=== PATIENT | female | born 1990 | race Caucasian/White ===

== ENCOUNTER 2016-08-29 22:32 | Inpatient (IN) | payer OTHER ==
[2016-08-29] MEDS ORDERED: Sodium Chloride 0.9% 10 ML Syringe FLUSH PRN (23:20)
[2016-08-29] MEDS ORDERED: Lactated Ringers 1,000 ML IV SCH (23:30)
--- NOTE | 2016-08-29 23:42 | PCM.LDHP ---
L&D History of Present Illness - General Date of Service: 08/29/16 Admit Problem/Dx: Admission Diagnosis/Problem Admission Diagnosis/Problem Source of Information: Patient History Limitations: Reports: No Limitations - History of Present Illness Improves with: Reports: None Worsens with: Reports: None Associated Symptoms: Reports: N - Related Data Allergies/Adverse Reactions: Allergies Allergy/AdvReac Type Severity Reaction Status Date / Time No Known Allergies Allergy Verified 06/13/14 06:02 Home Medications: Home Meds PNV95/Ferrous Fumarate/FA [ Multivitamins] 1 each PO DAILY 06/13/14 [ History] 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: - Past Surgical History HEENT Surgical History: Reports: Adenoidectomy, Tonsillectomy Social & Family History - Family History Cardiac: Reports: Hypertension - Tobacco Use Smoking Status *Q: Never Smoker Second Hand Smoke Exposure: No - Caffeine Use Caffeine Use: Reports: Coffee, Soda - Alcohol Use Days Per Week of Alcohol Use: 0 - Recreational Drug Use Recreational Drug Use: No H&P Review of Systems - Review of Systems: Review Of Systems: See Below General: Reports: No Symptoms HEENT: Reports: No Symptoms Pulmonary: Reports: No Symptoms Cardiovascular: Reports: No Symptoms Gastrointestinal: Reports: No Symptoms Genitourinary: Reports: Other (contractions) Musculoskeletal: Reports: No Symptoms Skin: Reports: No Symptoms Psychiatric: Reports: No Symptoms Neurological: Reports: No Symptoms Hematologic/Lymphatic: Reports: No Symptoms Immunologic: Reports: No Symptoms L&D Exam - Exam Exam: See Below - Vital Signs Weight: 78.471 kg - OB Specific Contraction Intensity: Mild to Moderate Movement: Active Heart Tones: Present - Cortes Score Cortes Score Cervix Position: Midposition Cortes Score Consistency: Medium Cortes Score Effacement: >80% Cortes Score Dilation: > 5 cm Cortes Score Infant's Station: -1 ,0 Cortes Score Total: 10 - Exam General: Alert HEENT: Conjunctiva Clear Neck: Supple Lungs: Clear to Auscultation Cardiovascular: Regular Rate Genitourinary: Normal external exam Back Exam: Normal Inspection Extremities: Normal Inspection Skin: Warm, Dry, Intact Psychiatric: Alert, Normal Affect, Normal Mood Problem List Initiated/Reviewed/Updated: Yes Orders Last 24hrs: Active Orders 24 hr Category Date Time Status Activity as Tolerated [RC] PFP Care 08/29/16 23:21 Active Communication Order [RC] ASDIRECTED Care 08/29/16 23:21 Active Heart Tones [RC] ASDIRECTED Care 08/29/16 23:21 Active Notify Provider [RC] PFP Care 08/29/16 23:21 Active Notify Provider [RC] PRN Care 08/29/16 23:21 Active Peripheral IV Care [RC] . DIRECTED Care 08/29/16 23:21 Active Vital Signs [RC] PER UNIT ROUTINE Care 08/29/16 23:21 Active Lactated Ringers [Ringers, Lactated] 1,000 ml Med 08/29/16 23:30 Active IV ASDIRECTED Sodium Chloride 0.9% [Saline Flush] Med 08/29/16 23:20 Active 10 ml FLUSH ASDIRECTED PRN Electronic Heart Tones Ext w TOCO [WOMSER] Oth 08/29/16 23:21 Ordered Routine Electronic Heart Tones Internal [WOMSER] Per Unit Oth 08/29/16 23:21 Ordered Routine Peripheral IV Insertion Adult [OM.PC] Routine Oth 08/29/16 23:21 Ordered Resuscitation Status Routine Resus Stat 08/29/16 23:20 Ordered Medication Orders Lactated Ringer's (Ringers, Lactated) 1,000 mls @ 100 mls/hr IV ASDIRECTED ANNIE Sodium Chloride (Saline Flush) 10 ml FLUSH ASDIRECTED PRN PRN Reason: Keep Vein Open Assessment/Plan Comment:: 26 year old here in labor. Admit Pain control per patient request (declines now) Anticipate .
[2016-08-29] MEDS ORDERED: Oxytocin/Lactated Ringers 10 UNIT/1,000 ML BAG IV SCH (23:45)
[2016-08-30] MEDS ORDERED: Docusate Sodium 100 MG Cap PO PRN (03:04)
[2016-08-30] MEDS ORDERED: Lanolin 100% Cream 7 GM Tube TOP PRN (03:04)
[2016-08-30] MEDS ORDERED: Witch Hazel Medicated Pads 100/Jar TOP PRN (03:04)
[2016-08-30] MEDS ORDERED: Benzocaine/Menthol 20%-0.5% Spray 56 GM Canister TOP PRN (03:04)
[2016-08-30] MEDS: Ibuprofen 600 MG Tab PO PRN ×2 (03:30→11:47)
[2016-08-30] MEDS: Acetaminophen 325 MG Tab PO PRN ×2 (08:21→13:54)
[2016-08-30] MEDS: Acetaminophen/HYDROcodone 325-10 MG Tab PO PRN (17:09)
[2016-08-31] MEDS: Acetaminophen/HYDROcodone 325-10 MG Tab PO PRN (04:37)
[2016-08-31 11:11] VITALS: BP 105/77
--- NOTE | 2016-09-05 05:50 | PCM.DCSUM1 ---
Discharge Summary - Hospital Course Brief History: Admitted in active labor. Unremarkable . Discharged in good condition PPD1 - Discharge Data Discharge Date: 08/30/16 Discharge Disposition: Home, Self-Care 01 Condition: Stable - Patient Instructions Diet: Usual Diet as Tolerated Activity: Apply Ice Driving: May Drive Today Showering/Bathing: July Shower Notify Provider of: Fever, Increased Pain, Swelling and Redness, Drainage, Nausea and/or Vomiting - Discharge Plan Home Medications: Home Meds PNV95/Ferrous Fumarate/FA [ Multivitamins] 1 each PO DAILY 06/13/14 [ History] Patient Handouts: Home Care Instructions for Mom - Discharge Summary/Plan Comment DC Time >30 min.: No - General Info Date of Service: 08/30/16 Functional Status: Reports: pain controlled - Review of Systems General: Reports: No Symptoms HEENT: Reports: no symptoms Pulmonary: Reports: no symptoms Cardiovascular: Reports: No Symptoms Gastrointestinal: Reports: No symptoms Genitourinary: Reports: no symptoms Musculoskeletal: Reports: no symptoms Skin: Reports: no symptoms Neurological: Reports: No Symptoms Psychiatric: Reports: no symptoms - Patient Data Vitals - Most Recent: Last Vital Signs Temp 36.3 C 08/31/16 09:16 Pulse 71 08/31/16 09:16 Resp 14 08/31/16 09:16 BP 105/77 08/31/16 09:16 Pulse Ox 100 08/31/16 09:16 Weight - Most Recent: 81.374 kg Med Orders - Current: Current Medications Discontinued Medications Acetaminophen (Tylenol) 650 mg PO Q4H PRN PRN Reason: Pain Last Admin: 08/30/16 13:54 Dose: 650 mg Hydrocodone Bitart/Acetaminophen ([place] 325-10 Mg) 0 tab PO Q6H PRN PRN Reason: Pain Last Admin: 08/31/16 04:37 Dose: 2 tab Benzocaine/Menthol (Dermoplast Pain Relief [place]) 0 gm TOP ASDIRECTED PRN PRN Reason: Perineal Comfort Measure Last Admin: 08/30/16 03:30 Dose: 56 gm Docusate Sodium (Colace) 100 mg PO BID PRN PRN Reason: Constipation Emollient Ointment (Lansinoh Hpa) 0 gm TOP ASDIRECTED PRN PRN Reason: Sore Nipples Lactated Ringer's (Ringers, Lactated) 1,000 mls @ 100 mls/hr IV ASDIRECTED ANNIE Oxytocin/Lactated Ringer's (Pitocin In Lr 10 Units/1,000 Ml) 10 unit in 1,000 mls @ 500 mls/hr IV ASDIRECTED ANNIE PRN Reason: Protocol Last Admin: 08/30/16 02:13 Dose: 500 mls/hr Ibuprofen (Motrin) 600 mg PO Q6H PRN PRN Reason: Mild pain or fever Last Admin: 08/30/16 11:47 Dose: 600 mg Sodium Chloride (Saline Flush) 10 ml FLUSH ASDIRECTED PRN PRN Reason: Keep Vein Open Zuhair Price (Vandana) 1 pad TOP ASDIRECTED PRN PRN Reason: Hemorrhoid pain Last Admin: 08/30/16 03:30 Dose: 1 pad *Q Meaningful Use (DIS) - VTE *Q VTE Criteria *Q: - Stroke *Q Stroke Criteria *Q: - AMI *Q AMI Criteria *Q:
== END 2016-08-31 12:05 | disposition home or self-care (01) | DRG 775 ==
LOC: JD.OBCHECK 22:32 → JD.OB 22:35 → JD.OBCHECK 23:36 → JD.OB 23:37 → OBSVTOIN 08-30 02:12
PROVIDERS: ADMIT Obstetrics & Gynecology; ATTEND Obstetrics & Gynecology
PROC: 10E0XZZ Delivery of Products of Conception, External Approach (ICD-10-PCS; principal; 2016-08-30)
PROC: 10907ZC Drainage of Amniotic Fluid, Therapeutic from Products of Conception, Via Natural or Artificial Opening (ICD-10-PCS; 2016-08-30)
DX: O80 Encounter for full-term uncomplicated delivery (principal); Z3A.40 40 weeks gestation of pregnancy; Z37.0 Single live birth
CPT/HCPCS: A9270-GY; J2590

== ENCOUNTER 2020-07-10 16:54 | Inpatient (IN) | payer OTHER ==
[2020-07-10] MEDS ORDERED: Ampicillin 2 GM in Sodium Chloride 0.9% 100 ML IV ONE (18:40)
[2020-07-10] MEDS ORDERED: Ondansetron 4 MG/2 ML SDV IVPUSH PRN (18:40)
[2020-07-10] MEDS ORDERED: Nalbuphine 10 MG/1 ML Vial IVPUSH PRN (18:40)
[2020-07-10] MEDS ORDERED: Sodium Chloride 0.9% 10 ML Syringe FLUSH PRN (18:40)
--- NOTE | 2020-07-10 18:43 | PCM.LDHP ---
L&D History of Present Illness - General Date of Service: 07/10/20 Admit Problem/Dx: Patient Status Order with Admit Dx/Problem 07/10/20 16:59 Patient Status [ADT] Routine 07/10/20 18:40 Patient Status [ADT] Routine Admission Diagnosis/Problem Admission Diagnosis/Problem Source of Information: Patient History Limitations: Reports: No Limitations - History of Present Illness Introduction:: Patient is a 30 y/o at 39 1/7 wks who presented initially for rule out SROM/labor. Doing well. No headaches, vision changes. 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 Psychiatric History: Reports: Anxiety - Past Surgical History HEENT Surgical History: Reports: Adenoidectomy, Tonsillectomy Social & Family History - Family History Family Medical History: No Pertinent Family History Cardiac: Reports: Hypertension - Tobacco Use Tobacco Use Status *Q: Never Tobacco User - Caffeine Use Caffeine Use: Reports: Coffee, Soda - Alcohol Use Alcohol Use History: No - Recreational Drug Use Recreational Drug Use: No H&P Review of Systems - Review of Systems: Review Of Systems: See Below General: Reports: No Symptoms Pulmonary: Reports: No Symptoms Cardiovascular: Reports: No Symptoms Gastrointestinal: Reports: No Symptoms Genitourinary: Reports: No Symptoms Musculoskeletal: Reports: No Symptoms Neurological: Reports: No Symptoms L&D Exam - Exam Exam: See Below - Vital Signs Vital Signs: Last Vital Signs Temp 37.1 C 07/10/20 17:35 Pulse 103 H 07/10/20 17:35 Resp 14 07/10/20 17:35 BP 140/95 H 07/10/20 17:35 Pulse Ox 100 07/10/20 17:35 - OB Specific Contraction Intensity: Irritability Movement: Active Heart Tones: Present Heart Tones per Min: 140 Heart Rate (FHR) Variability: Moderate (6-25 bmp) Presentation: Vertex - Cortes Score Cortes Score Cervix Position: Midposition Cortes Score Consistency: Medium Cortes Score Effacement: 31-50% Cortes Score Dilation: 1-2 cm Cortes Score Infant's Station: -2 Cortes Score Total: 5 - Exam General: Alert, Oriented, Cooperative Lungs: Clear to Auscultation, Normal Respiratory Effort Cardiovascular: Regular Rate, Regular Rhythm GI/Abdominal Exam: Soft, Non-Tender Genitourinary: Normal external exam Extremities: Normal Inspection Skin: Warm, Dry, Intact - Patient Data Lab Results Last 24 hrs: Laboratory Results - last 24 hr 07/10/20 07/10/20 Range/Units 17:20 18:25 WBC 13.49 H (3.98-10.04) K/mm3 RBC 4.68 (3.98-5.22) M/mm3 Hgb 13.1 (11.2-15.7) gm/dl Hct 39.4 (34.1-44.9) % MCV 84.2 (79.4-94.8) fl MCH 28.0 (25.6-32.2) pg MCHC 33.2 (32.2-35.5) g/dl RDW Std Deviation 41.4 (36.4-46.3) fL Plt Count 177 L (182-369) K/mm3 MPV 11.1 (9.4-12.3) fl Neut % (Auto) 77.6 H (34.0-71.1) % Lymph % (Auto) 14.1 L (19.3-51.7) % [place] % (Auto) 6.6 (4.7-12.5) % Eos % (Auto) 0.7 (0.7-5.8) Baso % (Auto) 0.1 (0.1-1.2) % Neut # (Auto) 10.47 H (1.56-6.13) K/mm3 Lymph # (Auto) 1.90 (1.18-3.74) K/mm3 [place] # (Auto) 0.89 H (0.24-0.36) K/mm3 Eos # (Auto) 0.09 (0.04-0.36) K/mm3 Baso # (Auto) 0.02 (0.01-0.08) K/mm3 Membrane Rupture Negative Result Diagrams: 07/10/20 18:25 07/10/20 18:25 - Problem List (1) 39 weeks gestation of SNOMED Code(s): 76429448 ICD Code: Z3A.39 - 39 WEEKS GESTATION OF Status: Acute Current Visit: Yes (2) Chronic hypertension SNOMED Code(s): 83044221, 09769498 ICD Code: I10 - ESSENTIAL (PRIMARY) HYPERTENSION Status: Acute Current Visit: Yes Problem List Initiated/Reviewed/Updated: Yes Orders Last 24hrs: Active Orders 24 hr Category Date Time Status Patient Status [ADT] Routine ADT 07/10/20 16:59 Active Patient Status [ADT] Routine ADT 07/10/20 18:40 Ordered Communication Order [RC] ASDIRECTED Care 07/10/20 18:40 Ordered Communication Order [RC] ASDIRECTED Care 07/10/20 18:40 Ordered Communication Order [RC] ASDIRECTED Care 07/10/20 18:40 Ordered Heart Tones [RC] ASDIRECTED Care 07/10/20 18:40 Ordered Monitoring [RC] INTERMITTENT Care 07/10/20 18:40 Ordered Non Stress Test [RC] PER UNIT ROUTINE Care 07/10/20 16:59 Active Non Stress Test [RC] PER UNIT ROUTINE Care 07/10/20 18:40 Ordered Notify Provider [RC] ASDIRECTED Care 07/10/20 18:40 Ordered Notify Provider [RC] PRN Care 07/10/20 18:40 Ordered Peripheral IV Care [RC] . DIRECTED Care 07/10/20 18:40 Ordered Vaginal Exam [RC] ASDIRECTED Care 07/10/20 18:40 Ordered Vital Signs [RC] ASDIRECTED Care 07/10/20 18:40 Ordered Vital Signs [RC] PER UNIT ROUTINE Care 07/10/20 16:59 Active Regular Diet [DIET] Diet 07/10/20 Dinner Ordered CMP [COMPREHENSIVE METABOLIC PN,CMP] [CHEM] Stat Lab 07/10/20 18:11 Ordered CORONAVIRUS COVID-19 KENNETH [MOLEC] Stat Lab 07/10/20 18:42 Ordered PROTEIN/CREATININE RATIO,URINE [URCHEM] Stat Lab 07/10/20 18:11 Ordered RAPID PLASMA REAGIN,RPR [CHEM] Routine Lab 07/10/20 18:24 Ordered TYPE AND SCREEN [BBK] Routine Lab 07/10/20 18:24 Ordered Ampicillin 1 gm Med 07/10/20 18:45 Ordered Sodium Chloride 0.9% [Normal Saline] 100 ml IV Q4H Ampicillin 2 gm Med 07/10/20 18:40 Ordered Sodium Chloride 0.9% [Normal Saline] 100 ml IV ONETIME Lactated Ringers [Ringers, Lactated] 1,000 ml Med 07/10/20 18:45 Ordered IV ASDIRECTED Nalbuphine [Nubain] Med 07/10/20 18:40 Ordered 10 mg IVPUSH Q2H PRN Ondansetron [Zofran] Med 07/10/20 18:40 Ordered 4 mg IVPUSH Q4H PRN Oxytocin/Lactated Ringers [Pitocin in LR 10 Units/1,000 Med 07/10/20 18:45 Ordered ML] 10 unit in 1,000 ml IV .CONTINUOUS Oxytocin/Lactated Ringers [Pitocin in LR 10 Units/1,000 Med 07/10/20 18:45 Ordered ML] 10 unit in 1,000 ml IV TITRATE Sodium Chloride 0.9% [Saline Flush] Med 07/10/20 18:40 Ordered 10 ml FLUSH ASDIRECTED PRN Electronic Heart Tones Ext w TOCO [WOMSER] Oth 07/10/20 18:40 Ordered Routine Electronic Heart Tones Internal [WOMSER] Per Unit Oth 07/10/20 18:40 Ordered Routine Peripheral IV Insertion Adult [OM.PC] Routine Oth 07/10/20 18:40 Ordered Resuscitation Status Routine Resus Stat 07/10/20 16:59 Ordered Medication Orders Lactated Ringer's (Ringers, Lactated) 1,000 mls @ 40 mls/hr IV ASDIRECTED ANNIE Oxytocin/Lactated Ringer's (Pitocin In Lr 10 Units/1,000 Ml) 10 unit in 1,000 mls @ 12 mls/hr IV TITRATE ANNIE; Protocol Ampicillin Sodium 2 gm/ Sodium (Chloride) 100 mls @ 200 mls/hr IV ONETIME ONE Stop: 07/10/20 19:09 Nalbuphine HCl (Nalbuphine 10 Mg/1 Ml Vial) 10 mg IVPUSH Q2H PRN PRN Reason: Pain Sodium Chloride (Sodium Chloride 0.9% 10 Ml Syringe) 10 ml FLUSH ASDIRECTED PRN PRN Reason: Keep Vein Open Assessment/Plan Comment:: Patient with several mild range BP's at her first appointment at 11 weeks and started on labetalol. Has remained stable with normal BP's since that time, however, today now with several mild range BP's. Reviewed given change in BP's would recommend IOL at this time. She agree. Ampicillin to be started for GBS. Pitocin and AROM for IOL. Pain management per patient preference. Anticipate
[2020-07-10] MEDS ORDERED: Oxytocin/Lactated Ringers 10 UNIT/1,000 ML BAG IV SCH ×2 (18:45)
[2020-07-10] MEDS: Lactated Ringers 1,000 ML IV SCH (19:04)
[2020-07-10] MEDS: Ampicillin 1 GM in Sodium Chloride 0.9% 100 ML IV SCH (23:06)
[2020-07-11] MEDS ORDERED: Bupivacaine 0.25% 10 ML SDV ONE
[2020-07-11] MEDS ORDERED: diphenhydrAMINE 50 MG/ML SDV IVPUSH PRN (02:17)
[2020-07-11] MEDS ORDERED: ePHEDrine 50 MG/ML SDV IVPUSH PRN (02:17)
[2020-07-11] MEDS ORDERED: fentaNYL 100 MCG/2 ML SDV EPIDUR PRN (02:17)
[2020-07-11] MEDS ORDERED: Bupivacaine/fentaNYL/NS 100 ML Bag EPIDUR PRN (02:17)
--- NOTE | 2020-07-11 02:45 | PCM.PREANE ---
Preanesthetic Assessment - Procedure Proposed Procedure: madiha - Anesthesia/Transfusion/Family Hx Anesthesia History: Prior Anesthesia Without Reaction Family History of Anesthesia Reaction: No Transfusion History: No Prior Transfusion(s) - Review of Systems General: No Symptoms Pulmonary: No Symptoms Cardiovascular: No Symptoms Gastrointestinal: No Symptoms Neurological: No Symptoms Other: Reports: Anxiety - Physical Assessment Vital Signs: Last Vital Signs Temp 98.7 F 07/10/20 17:35 Pulse 103 H 07/10/20 17:35 Resp 14 07/10/20 17:35 BP 140/95 H 07/10/20 17:35 Pulse Ox 100 07/10/20 17:35 Height: 5 ft 7 in Weight: 99.291 kg ASA Class: 2 Mental Status: Alert & Oriented x3 Airway Class: Mallampati = 1 Dentition: Reports: Normal Dentition Thyro-Mental Finger Breadths: 3 Mouth Opening Finger Breadths: 3 ROM/Head Extension: Full Lungs: Clear to Auscultation, Normal Respiratory Effort Cardiovascular: Regular Rate, Regular Rhythm - Lab Values: Laboratory Last Values WBC 13.49 K/mm3 (3.98-10.04) H 07/10/20 18:25 RBC 4.68 M/mm3 (3.98-5.22) 07/10/20 18:25 Hgb 13.1 gm/dl (11.2-15.7) 07/10/20 18:25 Hct 39.4 % (34.1-44.9) 07/10/20 18:25 MCV 84.2 fl (79.4-94.8) 07/10/20 18:25 MCH 28.0 pg (25.6-32.2) 07/10/20 18:25 MCHC 33.2 g/dl (32.2-35.5) 07/10/20 18:25 RDW Std Deviation 41.4 fL (36.4-46.3) 07/10/20 18:25 Plt Count 177 K/mm3 (182-369) L 07/10/20 18:25 MPV 11.1 fl (9.4-12.3) 07/10/20 18:25 Neut % (Auto) 77.6 % (34.0-71.1) H 07/10/20 18:25 Lymph % (Auto) 14.1 % (19.3-51.7) L 07/10/20 18:25 [place] % (Auto) 6.6 % (4.7-12.5) 07/10/20 18:25 Eos % (Auto) 0.7 (0.7-5.8) 07/10/20 18:25 Baso % (Auto) 0.1 % (0.1-1.2) 07/10/20 18:25 Neut # (Auto) 10.47 K/mm3 (1.56-6.13) H 07/10/20 18:25 Lymph # (Auto) 1.90 K/mm3 (1.18-3.74) 07/10/20 18:25 [place] # (Auto) 0.89 K/mm3 (0.24-0.36) H 07/10/20 18:25 Eos # (Auto) 0.09 K/mm3 (0.04-0.36) 07/10/20 18:25 Baso # (Auto) 0.02 K/mm3 (0.01-0.08) 07/10/20 18:25 Sodium 138 mEq/L (136-145) 07/10/20 18:25 Potassium 3.8 mEq/L (3.5-5.1) 07/10/20 18:25 Chloride 102 mEq/L (98-107) 07/10/20 18:25 Carbon Dioxide 21 mEq/L (21-32) 07/10/20 18:25 Anion Gap 18.8 (5-15) H 07/10/20 18:25 BUN 12 mg/dL (7-18) 07/10/20 18:25 Creatinine 0.7 mg/dL (0.55-1.02) 07/10/20 18:25 Est Cr Clr Drug Dosing TNP 07/10/20 18:25 Estimated GFR (MDRD) > 60 mL/min (>60) 07/10/20 18:25 BUN/Creatinine Ratio 17.1 (14-18) 07/10/20 18:25 Glucose 95 mg/dL (74-106) 07/10/20 18:25 Calcium 9.4 mg/dL (8.5-10.1) 07/10/20 18:25 Total Bilirubin 0.4 mg/dL (0.2-1.0) 07/10/20 18:25 AST 15 U/L (15-37) 07/10/20 18:25 ALT 20 U/L (14-59) 07/10/20 18:25 Alkaline Phosphatase 149 U/L (46-116) H 07/10/20 18:25 Total Protein 7.6 g/dl (6.4-8.2) 07/10/20 18:25 Albumin 3.1 g/dl (3.4-5.0) L 07/10/20 18:25 Globulin 4.5 gm/dL 07/10/20 18:25 Albumin/Globulin Ratio 0.7 (1-2) L 07/10/20 18:25 Ur Random Creatinine 36.3 mg/dL (30.0-125.0) 07/10/20 18:16 U Random Total Protein < 6.0 mg/dL (0.0-11.8) 07/10/20 18:16 Protein/Creatinin Ratio TNP 07/10/20 18:16 Membrane Rupture Negative 07/10/20 17:20 SARS-CoV-2 RNA (KENNETH) Negative (NEGATIVE) 07/10/20 19:15 Blood Type A NEGATIVE 07/10/20 18:25 Gel Antibody Screen Negative 07/10/20 18:25 - Allergies Allergies/Adverse Reactions: Allergies Allergy/AdvReac Type Severity Reaction Status Date / Time No Known Allergies Allergy Verified 08/29/16 23:52 - Blood Blood Available: No - Acknowledgements Anesthesia Type Planned: Epidural Pt an Appropriate Candidate for the Planned Anesthesia: Yes Alternatives and Risks of Anesthesia Discussed w Pt/Guardian: Yes Pt/Guardian Understands and Agrees with Anesthesia Plan: Yes PreAnesthesia Questionnaire Cardiovascular History: Reports: Hypertension Respiratory History: Reports: None Gastrointestinal History: Reports: GERD (with preg) 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: Psychiatric History: Reports: Anxiety - Past Surgical History HEENT Surgical History: Reports: Adenoidectomy, Oral Surgery, Tonsillectomy - History Comment History Comment: labetalol for high bp - SUBSTANCE USE Tobacco Use Status *Q: Never Tobacco User Tobacco Use Within Last Twelve Months: No Second Hand Smoke Exposure: No Days Per Week of Alcohol Use: 0 Recreational Drug Use History: No - HOME MEDS Home Medications: Home Meds PNV95/Ferrous Fumarate/FA [ Multivitamins] 1 each PO DAILY 06/13/14 [History] - CURRENT (IN HOUSE) MEDS Current Meds: Current Medications Diphenhydramine HCl (Diphenhydramine 50 Mg/Ml Sdv) 25 mg IVPUSH Q6H PRN PRN Reason: pruritis Ephedrine Sulfate (Ephedrine 50 Mg/Ml Sdv) 5 mg IVPUSH ASDIRECTED PRN PRN Reason: Hypotension Fentanyl (Fentanyl 100 Mcg/2 Ml Sdv) 100 mcg EPIDUR Q3H PRN PRN Reason: Pain Last Admin: 07/11/20 02:29 Dose: 100 mcg Documented by: Fentanyl/Bupivacaine HCl (Bupivacaine/Fentanyl/Ns 100 Ml Bag) 100 ml EPIDUR ASDIRECTED PRN PRN Reason: Pain Last Admin: 07/11/20 02:29 Dose: 100 ml Documented by: Lactated Ringer's (Ringers, Lactated) 1,000 mls @ 40 mls/hr IV ASDIRECTED ANNIE Last Admin: 07/10/20 19:04 Dose: 40 mls/hr Documented by: Oxytocin/Lactated Ringer's (Pitocin In Lr 10 Units/1,000 Ml) 10 unit in 1,000 mls @ 12 mls/hr IV TITRATE ANNIE; Protocol Last Titration: 07/11/20 01:30 Dose: 16 munits/min, 96 mls/hr Documented by: Ampicillin Sodium 1 gm/ Sodium (Chloride) 100 mls @ 200 mls/hr IV Q4H ANNIE Last Admin: 07/10/20 23:06 Dose: 200 mls/hr Documented by: Oxytocin/Lactated Ringer's (Pitocin In Lr 10 Units/1,000 Ml) 10 unit in 1,000 mls @ 500 mls/hr IV .CONTINUOUS ANNIE Nalbuphine HCl (Nalbuphine 10 Mg/1 Ml Vial) 10 mg IVPUSH Q2H PRN PRN Reason: Pain Ondansetron HCl (Ondansetron 4 Mg/2 Ml Sdv) 4 mg IVPUSH Q4H PRN PRN Reason: Nausea/Vomiting Sodium Chloride (Sodium Chloride 0.9% 10 Ml Syringe) 10 ml FLUSH ASDIRECTED PRN PRN Reason: Keep Vein Open Discontinued Medications Ampicillin Sodium 2 gm/ Sodium (Chloride) 100 mls @ 200 mls/hr IV ONETIME ONE Stop: 07/10/20 19:09 Last Admin: 07/10/20 19:05 Dose: 200 mls/hr Documented by:
[2020-07-11] MEDS: Lactated Ringers 1,000 ML IV SCH (02:53)
[2020-07-11] MEDS: Ampicillin 1 GM in Sodium Chloride 0.9% 100 ML IV SCH (03:17)
--- NOTE | 2020-07-11 05:49 | PCM.DEL ---
L & D Note - General Info Date of Service: 07/11/20 - Delivery Note Labor: Induced by ARM, Induced by Oxytocin Delivery Outcome: Livebirth Infant Delivery Method: Spontaneous Vaginal Delivery-Single Infant Delivery Mode: Spontaneous Presentation: Left Occiput Anterior (STACEY) Nuchal Cord: Present, Reduced Anesthesia Type: Epidural Amniotic Fluid Description: Clear Episiotomy Type: None Laceration: None Placenta: Intact, Spontaneous Cord: 3 Vessels Estimated Blood Loss: 200 Resuscitation Needed: Yes [place]: Bulb Syringe, Stimulated, Warmed, [place] Used, Warmer Used - General Info Date of Service: 07/11/20 - Patient Data Vitals - Most Recent: Last Vital Signs Temp 37.1 C 07/10/20 17:35 Pulse 103 H 07/10/20 17:35 Resp 14 07/10/20 17:35 BP 140/95 H 07/10/20 17:35 Pulse Ox 100 07/10/20 17:35 Weight - Most Recent: 99.291 kg I&O - Last 24 Hours: Intake & Output 07/10/20 07/10/20 07/11/20 14:59 22:59 06:59 Intake Total 1300 Balance 1300 - Problem List & Annotations (1) 39 weeks gestation of SNOMED Code(s): 86086749 Code(s): Z3A.39 - 39 WEEKS GESTATION OF Status: Acute Current Visit: Yes (2) Chronic hypertension SNOMED Code(s): 20692545, 35894927 Code(s): I10 - ESSENTIAL (PRIMARY) HYPERTENSION Status: Acute Current Visit: Yes (3) Vaginal delivery SNOMED Code(s): 161963294 Code(s): O80 - ENCOUNTER FOR FULL-TERM UNCOMPLICATED DELIVERY Status: Acute Current Visit: Yes - Problem List Review Problem List Initiated/Reviewed/Updated: Yes - My Orders Last 24 Hours: My Active Orders 07/10/20 16:59 Patient Status [ADT] Routine Vital Signs [RC] 03,09,15,21 Resuscitation Status Routine 07/10/20 Dinner Regular Diet [DIET] 07/10/20 18:25 RAPID PLASMA REAGIN,RPR [CHEM] Routine 07/10/20 18:40 Patient Status [ADT] Routine Communication Order [RC] ASDIRECTED Communication Order [RC] ASDIRECTED Communication Order [RC] ASDIRECTED Heart Tones [RC] ASDIRECTED Monitoring [RC] INTERMITTENT Notify Provider [RC] ASDIRECTED Notify Provider [RC] PRN Peripheral IV Care [RC] . DIRECTED Vaginal Exam [RC] ASDIRECTED Nalbuphine [Nubain] 10 mg IVPUSH Q2H PRN Ondansetron [Zofran] 4 mg IVPUSH Q4H PRN Sodium Chloride 0.9% [Saline Flush] 10 ml FLUSH ASDIRECTED PRN Electronic Heart Tones Ext w TOCO [WOMSER] Routine Electronic Heart Tones Internal [WOMSER] Per Unit Routine Peripheral IV Insertion Adult [OM.PC] Routine 07/10/20 18:45 Lactated Ringers [Ringers, Lactated] 1,000 ml IV ASDIRECTED Oxytocin/Lactated Ringers [Pitocin in LR 10 Units/1,000 ML] 10 unit in 1,000 ml IV .CONTINUOUS Oxytocin/Lactated Ringers [Pitocin in LR 10 Units/1,000 ML] 10 unit in 1,000 ml IV TITRATE 07/10/20 23:00 Ampicillin 1 gm Sodium Chloride 0.9% [Normal Saline] 100 ml IV Q4H - Assessment Assessment:: PPD#0 - Plan Plan:: * Routine cares * Breast feeding * Discharge home in 1-2 days
[2020-07-11] MEDS ORDERED: Benzocaine/Menthol 20%-0.5% Spray 56 GM Canister TOP PRN (05:57)
[2020-07-11] MEDS ORDERED: Witch Hazel Medicated Pads 40/Jar TOP PRN (05:57)
[2020-07-11] MEDS: Docusate Sodium 100 MG Cap PO PRN (08:05)
[2020-07-11] MEDS: Ibuprofen 600 MG Tab PO PRN ×3 (08:05→20:05)
[2020-07-11] MEDS: Acetaminophen 325 MG Tab PO PRN ×2 (17:34→23:39)
[2020-07-12] MEDS: Ibuprofen 600 MG Tab PO PRN ×2 (02:08→08:06)
--- NOTE | 2020-07-12 07:16 | PCM.DCSUM1 ---
Discharge Summary - Discharge Data Discharge Date: 07/12/20 Discharge Disposition: Home, Self-Care 01 Condition: Good - Referral to Home Health Primary Care Physician: Becca Edouard MD - Discharge Diagnosis/Problem(s) (1) 39 weeks gestation of SNOMED Code(s): 20579321 ICD Code: Z3A.39 - 39 WEEKS GESTATION OF Status: Acute Current Visit: Yes (2) Chronic hypertension SNOMED Code(s): 08200443, 62007947 ICD Code: I10 - ESSENTIAL (PRIMARY) HYPERTENSION Status: Acute Current Visit: Yes (3) Vaginal delivery SNOMED Code(s): 604035755 ICD Code: O80 - ENCOUNTER FOR FULL-TERM UNCOMPLICATED DELIVERY Status: Acute Current Visit: Yes - Patient Summary/Data Complications: None Consults: None Recommended Follow-up Testing/Procedures: Follow up in 1 week for BP check or 3 weeks for check Hospital Course: 30 y/o at 39 1/7 wks who presented for concerns of SROM. Testing was negative, but was found to have mild range BP's. For this reason was kept for IOL. Induction done with pitocin and AROM. Progressed well and underwent an uncomplicated . See delivery note. did well and was discharged home on PPD#1 - Patient Instructions Diet: Regular Diet as Tolerated Activity: As Tolerated Activity, Other: Pelvic rest for 6 weeks Driving: May Drive Today Showering/Bathing: May Shower Showering/Bathing, Other: May Bathe Notify Provider of: Fever, Increased Pain, Swelling and Redness, Drainage, Nausea and/or Vomiting - Discharge Plan *PRESCRIPTION DRUG MONITORING PROGRAM REVIEWED*: No *COPY OF PRESCRIPTION DRUG MONITORING REPORT IN PATIENT VICTOR HUGO: No Home Medications: Home Meds PNV95/Ferrous Fumarate/FA [ Multivitamins] 1 each PO DAILY 06/13/14 [History] Acetaminophen [Tylenol] 650 mg PO Q4H PRN tablet 07/11/20 [Rx] Docusate Sodium [Colace] 100 mg PO BID PRN cap 07/11/20 [Rx] Ibuprofen [Motrin] 600 mg PO Q6H PRN tablet 07/11/20 [Rx] Referrals: Becca Edouard MD [Primary Care Provider] - (1 week fro BP check and 3 weeks for check ) - Discharge Summary/Plan Comment DC Time >30 min.: No - Patient Data Vitals - Most Recent: Last Vital Signs Temp 36.6 C 07/12/20 03:43 Pulse 86 07/12/20 03:43 Resp 14 07/12/20 03:43 BP 116/64 07/12/20 03:43 Pulse Ox 100 07/12/20 03:43 Weight - Most Recent: 99.291 kg I&O - Last 24 hours: Intake & Output 07/11/20 07/12/20 07/12/20 22:59 06:59 14:59 Intake Total 440 Balance 440 Med Orders - Current: Current Medications Acetaminophen (Acetaminophen 325 Mg Tab) 650 mg PO Q4H PRN PRN Reason: mild pain or fever Last Admin: 07/11/20 23:39 Dose: 650 mg Documented by: Benzocaine/Menthol (Benzocaine/Menthol 20%-0.5% [place] 56 Gm Canister) 0 gm TOP ASDIRECTED PRN PRN Reason: Perineal Comfort Measure Last Admin: 07/11/20 08:05 Dose: 1 canister Documented by: Docusate Sodium (Docusate Sodium 100 Mg Cap) 100 mg PO BID PRN PRN Reason: Constipation Last Admin: 07/11/20 08:05 Dose: 100 mg Documented by: Ibuprofen (Ibuprofen 600 Mg Tab) 600 mg PO Q6H PRN PRN Reason: Mild pain or fever Last Admin: 07/12/20 02:08 Dose: 600 mg Documented by: Zuhair Price (Zuhair Price Medicated Pads 40/Jar) 1 pad TOP ASDIRECTED PRN PRN Reason: Perineal Comfort Measure Last Admin: 07/11/20 08:05 Dose: 1 container Documented by: Discontinued Medications Diphenhydramine HCl (Diphenhydramine 50 Mg/Ml Sdv) 25 mg IVPUSH Q6H PRN PRN Reason: pruritis Ephedrine Sulfate (Ephedrine 50 Mg/Ml Sdv) 5 mg IVPUSH ASDIRECTED PRN PRN Reason: Hypotension Fentanyl (Fentanyl 100 Mcg/2 Ml Sdv) 100 mcg EPIDUR Q3H PRN PRN Reason: Pain Last Admin: 07/11/20 02:29 Dose: 100 mcg Documented by: Fentanyl/Bupivacaine HCl (Bupivacaine/Fentanyl/Ns 100 Ml Bag) 100 ml EPIDUR ASDIRECTED PRN PRN Reason: Pain Last Admin: 07/11/20 02:29 Dose: 100 ml Documented by: Lactated Ringer's (Ringers, Lactated) 1,000 mls @ 40 mls/hr IV ASDIRECTED ANNIE Last Admin: 07/11/20 02:53 Dose: 40 mls/hr Documented by: Oxytocin/Lactated Ringer's (Pitocin In Lr 10 Units/1,000 Ml) 10 unit in 1,000 mls @ 12 mls/hr IV TITRATE ANNIE; Protocol Last Titration: 07/11/20 04:00 Dose: 20 munits/min, 120 mls/hr Documented by: Ampicillin Sodium 2 gm/ Sodium (Chloride) 100 mls @ 200 mls/hr IV ONETIME ONE Stop: 07/10/20 19:09 Last Admin: 07/10/20 19:05 Dose: 200 mls/hr Documented by: Ampicillin Sodium 1 gm/ Sodium (Chloride) 100 mls @ 200 mls/hr IV Q4H ANNIE Last Admin: 07/11/20 03:17 Dose: 200 mls/hr Documented by: Oxytocin/Lactated Ringer's (Pitocin In Lr 10 Units/1,000 Ml) 10 unit in 1,000 mls @ 500 mls/hr IV .CONTINUOUS ANNIE Last Admin: 07/11/20 06:34 Dose: 500 mls/hr Documented by: Nalbuphine HCl (Nalbuphine 10 Mg/1 Ml Vial) 10 mg IVPUSH Q2H PRN PRN Reason: Pain Ondansetron HCl (Ondansetron 4 Mg/2 Ml Sdv) 4 mg IVPUSH Q4H PRN PRN Reason: Nausea/Vomiting Sodium Chloride (Sodium Chloride 0.9% 10 Ml Syringe) 10 ml FLUSH ASDIRECTED PRN PRN Reason: Keep Vein Open
--- NOTE | 2020-07-12 07:16 | PCM.PNPP ---
- General Info Date of Service: 07/12/20 Functional Status: Reports: Pain Controlled, Tolerating Diet, Ambulating, Urinating - Review of Systems General: Reports: No Symptoms Pulmonary: Reports: No Symptoms Cardiovascular: Reports: No Symptoms Gastrointestinal: Reports: No Symptoms Genitourinary: Reports: No Symptoms Musculoskeletal: Reports: No Symptoms Neurological: Reports: No Symptoms - General Info Date of Service: 07/12/20 - Patient Data Vital Signs - Most Recent: Last Vital Signs Temp 36.6 C 07/12/20 03:43 Pulse 86 07/12/20 03:43 Resp 14 07/12/20 03:43 BP 116/64 07/12/20 03:43 Pulse Ox 100 07/12/20 03:43 Weight - Most Recent: 99.291 kg I&O - Last 24 Hours: Intake & Output 07/11/20 07/12/20 07/12/20 22:59 06:59 14:59 Intake Total 440 Balance 440 Med Orders - Current: Current Medications Acetaminophen (Acetaminophen 325 Mg Tab) 650 mg PO Q4H PRN PRN Reason: mild pain or fever Last Admin: 07/11/20 23:39 Dose: 650 mg Documented by: Benzocaine/Menthol (Benzocaine/Menthol 20%-0.5% [place] 56 Gm Canister) 0 gm TOP ASDIRECTED PRN PRN Reason: Perineal Comfort Measure Last Admin: 07/11/20 08:05 Dose: 1 canister Documented by: Docusate Sodium (Docusate Sodium 100 Mg Cap) 100 mg PO BID PRN PRN Reason: Constipation Last Admin: 07/11/20 08:05 Dose: 100 mg Documented by: Ibuprofen (Ibuprofen 600 Mg Tab) 600 mg PO Q6H PRN PRN Reason: Mild pain or fever Last Admin: 07/12/20 02:08 Dose: 600 mg Documented by: Zuhair Dee ([place] Medicated Pads 40/Jar) 1 pad TOP ASDIRECTED PRN PRN Reason: Perineal Comfort Measure Last Admin: 07/11/20 08:05 Dose: 1 container Documented by: Discontinued Medications Diphenhydramine HCl (Diphenhydramine 50 Mg/Ml Sdv) 25 mg IVPUSH Q6H PRN PRN Reason: pruritis Ephedrine Sulfate (Ephedrine 50 Mg/Ml Sdv) 5 mg IVPUSH ASDIRECTED PRN PRN Reason: Hypotension Fentanyl (Fentanyl 100 Mcg/2 Ml Sdv) 100 mcg EPIDUR Q3H PRN PRN Reason: Pain Last Admin: 07/11/20 02:29 Dose: 100 mcg Documented by: Fentanyl/Bupivacaine HCl (Bupivacaine/Fentanyl/Ns 100 Ml Bag) 100 ml EPIDUR ASDIRECTED PRN PRN Reason: Pain Last Admin: 07/11/20 02:29 Dose: 100 ml Documented by: Lactated Ringer's (Ringers, Lactated) 1,000 mls @ 40 mls/hr IV ASDIRECTED ANNIE Last Admin: 07/11/20 02:53 Dose: 40 mls/hr Documented by: Oxytocin/Lactated Ringer's (Pitocin In Lr 10 Units/1,000 Ml) 10 unit in 1,000 mls @ 12 mls/hr IV TITRATE ANNIE; Protocol Last Titration: 07/11/20 04:00 Dose: 20 munits/min, 120 mls/hr Documented by: Ampicillin Sodium 2 gm/ Sodium (Chloride) 100 mls @ 200 mls/hr IV ONETIME ONE Stop: 07/10/20 19:09 Last Admin: 07/10/20 19:05 Dose: 200 mls/hr Documented by: Ampicillin Sodium 1 gm/ Sodium (Chloride) 100 mls @ 200 mls/hr IV Q4H ANNIE Last Admin: 07/11/20 03:17 Dose: 200 mls/hr Documented by: Oxytocin/Lactated Ringer's (Pitocin In Lr 10 Units/1,000 Ml) 10 unit in 1,000 mls @ 500 mls/hr IV .CONTINUOUS ANNIE Last Admin: 07/11/20 06:34 Dose: 500 mls/hr Documented by: Nalbuphine HCl (Nalbuphine 10 Mg/1 Ml Vial) 10 mg IVPUSH Q2H PRN PRN Reason: Pain Ondansetron HCl (Ondansetron 4 Mg/2 Ml Sdv) 4 mg IVPUSH Q4H PRN PRN Reason: Nausea/Vomiting Sodium Chloride (Sodium Chloride 0.9% 10 Ml Syringe) 10 ml FLUSH ASDIRECTED PRN PRN Reason: Keep Vein Open - Interaction Disposition, : [place] in Room with Family Interaction: Holding Infant Feeding: Breastfed ; Nursed Well Support Person: - Recovery Exam Fundal Tone: Firm Fundal Level: 3 Fingerbreadths Below Umbilicus Fundal Placement: Midline Lochia Amount: Small Lochia Color: Rubra/Red Perineum Description: Intact, Minimal Bruising/Swelling Episiotomy/Laceration: None Bladder Status: Nonpalpable, Voiding Urinary Elimination: Voided - Exam General: Alert, Oriented, Cooperative GI/Abdominal Exam: Soft, Non-Tender - Problem List & Annotations (1) 39 weeks gestation of SNOMED Code(s): 27050948 Code(s): Z3A.39 - 39 WEEKS GESTATION OF Status: Acute Current Visit: Yes (2) Chronic hypertension SNOMED Code(s): 80447614, 49078018 Code(s): I10 - ESSENTIAL (PRIMARY) HYPERTENSION Status: Acute Current Visit: Yes (3) Vaginal delivery SNOMED Code(s): 523255386 Code(s): O80 - ENCOUNTER FOR FULL-TERM UNCOMPLICATED DELIVERY Status: Acute Current Visit: Yes - Problem List Review Problem List Initiated/Reviewed/Updated: Yes - My Orders Last 24 Hours: My Active Orders 07/11/20 Breakfast Regular Diet [DIET] 07/12/20 06:00 Heat Therapy [OM.PC] PRN 07/12/20 07:15 Ready for Discharge [RC] PER UNIT ROUTINE - Assessment Assessment:: PPD#1 - Plan Plan:: * Routine cares * Breast feeding * Discharge home today
[2020-07-12] MEDS: Docusate Sodium 100 MG Cap PO PRN (08:10)
--- NOTE | 2020-07-12 08:19 | PCM48HPAN ---
Post Anesthesia Note - EVALUATION WITHIN 48HRS OF ANESTHETIC Vital Signs in Normal Range: Yes Patient Participated in Evaluation: Yes Respiratory Function Stable: Yes Airway Patent: Yes Cardiovascular Function Stable: Yes Hydration Status Stable: Yes Pain Control Satisfactory: Yes Nausea and Vomiting Control Satisfactory: Yes Mental Status Recovered: Yes Vital Signs: Last Vital Signs Temp 36.6 C 07/12/20 03:43 Pulse 86 07/12/20 03:43 Resp 14 07/12/20 03:43 BP 116/64 07/12/20 03:43 Pulse Ox 100 07/12/20 03:43 - COMMENTS/OBSERVATIONS Free Text/Narrative:: no anesthesia complications noted
[2020-07-12 11:24] VITALS: BP 121/79; PULSE 84
== END 2020-07-12 11:30 | disposition home or self-care (01) | DRG 807 ==
LOC: JD.OBCHECK 16:54 → JD.OB 16:55 → JD.OBCHECK 18:40 → JD.OB 18:41 → OBSVTOIN 07-11 05:33 → JD.OB 07-11 05:34
PROVIDERS: ADMIT Obstetrics & Gynecology; ATTEND Obstetrics & Gynecology
PROC: 10E0XZZ Delivery of Products of Conception, External Approach (ICD-10-PCS; principal; 2020-07-11)
PROC: 10907ZC Drainage of Amniotic Fluid, Therapeutic from Products of Conception, Via Natural or Artificial Opening (ICD-10-PCS; 2020-07-11)
PROC: 3E033VJ Introduction of Other Hormone into Peripheral Vein, Percutaneous Approach (ICD-10-PCS; 2020-07-11)
PROC: 3E0R3BZ Introduction of Anesthetic Agent into Spinal Canal, Percutaneous Approach (ICD-10-PCS; 2020-07-11)
DX: O16.4 Unspecified maternal hypertension, complicating childbirth (principal); Z37.0 Single live birth; Z3A.39 39 weeks gestation of pregnancy; O69.81X0 Labor and delivery complicated by cord around neck, without compression, not applicable or unspecified; Z20.822 Contact with and (suspected) exposure to COVID-19
CPT/HCPCS: 01967; 36415; 51702; 59025; 59409; 80053; 82570; 84112; 84156; 85025; 86592; 86850; 86900; 86901; A9270-GY; J0290; J2590; J3010; J3490; J7120; U0002

== ENCOUNTER 2022-12-26 05:55 | Emergency (ER) | payer OTHER ==
[2022-12-26 06:28] LABS: APPEARANCE,URINE CLEAR (Clear); BILIRUBIN,URINE NEGATIVE (Negative); COLOR,URINE PINK (Yellow); GLUCOSE,URINE NEGATIVE (Negative); KETONES,URINE NEGATIVE (Negative); LEUKOCYTE ESTERASE,URINE 2+ (Negative); NITRITE,URINE NEGATIVE (Negative); OCCULT BLOOD,URINE 3+ (Negative); PROTEIN,URINE 1+ (Negative); UROBILINOGEN,URINE 0.2 (0.2-1.0)
[2022-12-26] MEDS ORDERED: Cephalexin 500 MG Cap PO ONE (06:46)
[2022-12-26 07:22] LABS: BACTERIA,URINE MANY /hpf (FEW); MUCUS,URINE NOT SEEN /hpf (FEW); RBC,URINE 0-5 /hpf (0-5); SQUAMOUS EPITHELIAL CELLS,UR 0-5 /hpf (0-5); WBC,URINE 0-5 /hpf (0-5)
[2022-12-26 08:05] VITALS: BP 159/82; PULSE 91
== END 2022-12-26 08:02 | disposition home or self-care (01) ==
LOC: JD.ED 05:55
DX: N39.0 Urinary tract infection, site not specified (principal); I10 Essential (primary) hypertension
CPT/HCPCS: 81001; 99283; A9270